=== PATIENT | female | born 1975 | race Hispanic/Latino ===

== ENCOUNTER 2016-07-14 08:08 | Emergency (ER) | payer OTHER ==
[~2016-07-14] VITALS: Ht 165.1 cm; Wt 106.6 kg
[~2016-07-14 08:08] MED LIST: ANTIVERT 25MG #1 PAC PO
[2016-07-14] MEDS ORDERED: SERTRALINE HCL50 MG PO (08:47)
--- NOTE | 2016-07-14 08:50 | ED GI/GU/ABDOMINAL COMPLAINT ---
History of Present Illness General Chief Complaint: Female Urogenital Problems Stated Complaint: VAGINAL BLEEDING Source: patient Exam Limitations: no limitations Vital Signs & Intake/Output Vital Signs & Intake/Output Vital Signs Date Time Temp Pulse Resp B/P B/P Pulse O2 O2 Flow FiO2 Mean Ox Delivery Rate 07/14 1014 97.8 68 20 139/86 99 Room Air 07/14 0811 97.6 75 18 185/96 100 Room Air Allergies Coded Allergies: No Known Allergies (07/14/16) Reconcile Medications Medroxyprogesterone Acetate (Provera) 10 MG TABLET 1 TAB PO DAILY VAG BLEEDING Sertraline HCl 50 MG TABLET 1 TAB PO DAILY MENTAL HEALTH (Reported) Triage Note: 41 Y/O FEMALE C/O VAGINAL BLEEDING X 10 DAYS. STATES SHE HAD A MIRENA SO HER OB REMOVED IT AND TOLD HER "IT WAS NORMAL". PT STATES BLEEDING CONTINUED. WAS EVAL'D AT [facility] YESTERDAY AND TOLD HER BLOODWORK WAS GOOD. C/O INTERMITTENT ABDOMINAL PAIN AND CONTINUED BLEEDING. Triage Nurses Notes Reviewed? yes ? n Is pt currently ? No Onset: Abrupt Duration: day(s): (10), constant, continues in ED Timing: recent history Quality/Severity: cramping, moderate, severe Radiation: no radiation Activities at Onset: none No Modifying Factors: none HPI: 41-year-old female comes into emergency room for evaluation of vaginal bleeding. Patient had her IUD pulled about 10 days ago and has had persistent bleeding since then. Some clots passing. Patient reports she's been going through about 8 pads a day. Patient was seen at Hospital yesterday and had blood work and a pelvic exam done. She spoke with her ASSESSMENT MANAGER doctor initially told her was normal for the bleeding. She called him back again and he told her he would prescribe some thin if it continued. The cramping lower abdominal pain. Denies any other associated symptoms. (CHERYL PARIS) Past History Travel History Traveled to [place] past 21 day No Medical History Any Pertinent Medical History? see below for history Neurological: NONE EENT: NONE Cardiovascular: NONE Respiratory: NONE Gastrointestinal: NONE Hepatic: NONE Renal: NONE Musculoskeletal: NONE Psychiatric: NONE Endocrine: NONE Blood Disorders: NONE Cancer(s): NONE TRAIN ENGINEER/Reproductive: NONE Surgical History Surgical History: non-contributory Psychosocial History What is your primary language Bulgarian Tobacco Use: Never used Family History Hx Contributory? No (CHERYL PARIS) Review of Systems Review of Systems Constitutional: Reports: no symptoms. EENTM: Reports: no symptoms. Respiratory: Reports: no symptoms. Cardiovascular: Reports: no symptoms. GI: Reports: see HPI. Genitourinary: Reports: see HPI. Musculoskeletal: Reports: no symptoms. Skin: Reports: no symptoms. Neurological/Psychological: Reports: no symptoms. Hematologic/Endocrine: Reports: see HPI. Immunologic/Allergic: Reports: no symptoms. All Other Systems: Reviewed and Negative (CHERYL PARIS) Physical Exam Physical Exam General Appearance: well developed/nourished, alert, awake Head: atraumatic, normal appearance Eyes: Bilateral: normal appearance. Ears, Nose, Throat, Mouth: hearing grossly normal, moist mucous membrane Neck: normal inspection, full range of motion Respiratory: no respiratory distress Cardiovascular: regular rate/rhythm Gastrointestinal: soft, non-tender Back: normal inspection Extremities: normal range of motion Neurologic/Psych: awake, alert, normal gait, normal mood/affect Skin: intact, normal color Core Measures ACS in differential dx? No Severe Sepsis Present: No Septic Shock Present: No (CHERYL PARIS) Progress Differential Diagnosis: appendicitis, ectopic , ovarian cyst, ovarian torsion, PID/cervicitis, perforated viscous, threatened AB, UTI/pyelo Plan of Care: Orders Procedure Date/time Status URINE 07/14 821 Complete URINALYSIS 07/14 821 Complete COMPREHENSIVE METABOLIC PANEL 07/14 821 Complete CBC WITHOUT DIFFERENTIAL 07/14 821 Complete Laboratory Tests 07/14/16 0850: Anion Gap 12, Estimated GFR > 60, BUN/Creatinine Ratio 13.3, Glucose 111 H, Calcium 9.3, Total Bilirubin 0.5, AST 26, ALT 49, Alkaline Phosphatase 100, Total Protein 7.4, Albumin 4.2, Globulin 3.2, Albumin/Globulin Ratio 1.3, CBC w Diff NO MAN DIFF REQ, RBC 4.98, MCV 79.1 L, MCH 25.9 L, RDW 15.5 H, MPV 9.0, Gran % 74.7, Lymphocytes % 20.9, Monocytes % 3.2, Eosinophils % 1.2, Basophils % 0 L, Absolute Granulocytes 8.2 H, Absolute Lymphocytes 2.3, Absolute Monocytes 0.3, Absolute Eosinophils 0.1, Absolute Basophils 0, PUBS MCHC 32.8 L 07/14/16 0828: Urine Color PINK H, Urine Clarity HAZY H, Urine pH 7.5, Ur Specific [place] 1.015, Urine Protein TRACE H, Urine Ketones NEG, Urine Nitrite NEG, Urine Bilirubin NEG, Urine Urobilinogen 0.2, Ur Leukocyte Esterase NEG, Ur Microscopic SEDIMENT EXAMINED, Urine RBC >75 H, Ur Epithelial Cells FEW, Urine Mucus RARE, Urine Hemoglobin LARGE H, Urine Glucose NEG, Urine Test NEGATIVE Initial ED EKG: none (NELL HILARIO,CHERYL) Departure Departure Disposition: HOME OR SELF CARE Condition: Stable Clinical Impression Primary Impression: Vaginal bleeding Referrals: SUSANA GASCA (PCP/Family) Additional Instructions: Take Provera as prescribed. Follow-up with your ASSESSMENT MANAGER doctor. Return if any concerns worsening symptoms. Please go over all results of today's visit with your primary care doctor. Contact your primary care doctor to let them know you were here in the emergency room. There may be nonspecific findings which may not be related to your visit today here in the emergency room but may require further evaluation and chronic monitoring by your primary care doctor. If you had a laceration today the chance of foreign body always remains. You should follow-up with your primary care doctor for recheck in 3-5 days for a wound check. If you had an x-ray done there is a chance that a fracture could have been missed on initial read and you should follow-up with your primary care doctor for repeat x-rays if symptoms persist. If your blood pressure was elevated here in the emergency room please have rechecked by her primary care doctor within the next 48 hours by your primary care doctor. If you were prescribed a narcotic here in the emergency room or any type of controlled substances you're not allowed to drive while taking this medication or operate any type of heavy machinery. Narcotics can make you feel lightheaded dizziness nausea and can cause constipation. You may need to tow picker a stool softener. Thank you for choosing [facility] emergency room. Please return to the emergency room immediately if you have any other concerns worsening of symptoms. Departure Forms: Customer Survey General Discharge Information Prescriptions: Current Visit Scripts Medroxyprogesterone Acetate (Provera) 1 TAB PO DAILY #5 TAB Comments 07/14/2016 10:50:07 AM Patient clinically looks well. Nontoxic-appearing. In no apparent distress. Hemodynamically stable. Patient started on Provera. Told to follow-up with food and nutrition teacher. Return if any concerns. Reevaluated multiple times. (NELL HILARIO,CHERYL) PA/HAZMAT TRUCK DRIVER Co-Sign Statement Statement: ED Attending supervision documentation- x I saw and evaluated the patient. I have also reviewed all the pertinent lab results and diagnostic results. I agree with the findings and the plan of care as documented in the PA's/HAZMAT TRUCK DRIVER's documentation. [] I have reviewed the ED Record and agree with the PA's/HAZMAT TRUCK DRIVER's documentation. [] Additions or exceptions (if any) to the PAs/HAZMAT TRUCK DRIVER's note and plan are summarized below: [] (MARQUIS JACINTO,ANNA)
[2016-07-14 09:04] LABS: ABSOLUTE BASOPHIL COUNT 0 /CUMM (0.0-0.2); ABSOLUTE EOSINOPHIL COUNT 0.1 /CUMM (0.0-0.7); ABSOLUTE GRANULOCYTE CT 8.2 /CUMM (1.4-6.5); ABSOLUTE LYMPH COUNT 2.3 /CUMM (1.2-3.4); ABSOLUTE MONOCYTE COUNT 0.3 /CUMM (0.10-0.60); BASOPHIL % 0 % (0.0-2.0); EOSINOPHIL % 1.2 % (0-5); GRANULOCYTE % 74.7 % (42.2-75.2); HEMATOCRIT 39.4 % (37-47); MEAN CORPUSCULAR HGB 25.9 PG (27.0-31.0); MEAN CORPUSCULAR HGB CONC 32.8 G/DL (33.0-37.0); MEAN CORPUSCULAR VOLUME 79.1 FL (81.0-99.0); PLATELET COUNT 279 /CUMM (130-400); RBC DISTRIBUTION WIDTH 15.5 % (11.5-14.5); RED BLOOD CELL CT 4.98 /CUMM (4.20-5.40)
[2016-07-14 10:14] VITALS: BP 139/86
--- NOTE | 2016-07-14 10:23 | ULTRASOUND REPORT ---
EXAMINATIONS: ULTRASOUND PELVIC, COMPLETE AND DOPPLER INTERROGATION CLINICAL INFORMATION: Persistent vaginal bleeding. COMPARISON: None. TECHNIQUE: Transabdominal and transvaginal imaging was performed. Transvaginal imaging was performed for further evaluation of the endometrium and adnexa. Doppler interrogation spectral analysis was performed. FINDINGS: The uterus is of normal size and echogenicity measuring 9.4 x 5.5 x 5.3 cm. There are 3 left-sided myometrial fibroids present. These measure 2.0 x 2.0 x 1.1 cm, 1.8 x 1.5 x 2.0 cm and 1.4 x 1.3 x 1.2 cm. A regular homogeneous endometrium is identified measuring 0.7 cm. The cervical length is 2.3 cm. There are several nabothian cysts present. Both ovaries are of normal size and echogenicity. The right measures 2.9 x 1.5 x 2.9 cm for a volume of 6.8 cc. This measurement includes an approximately 14 mm cyst. The left measures 4.3 x 1.8 x 1.7 cm for a volume of 7.0 cc. This measurement includes an approximately 15 mm cyst. Normal arterial and venous blood flow is present bilaterally. There is a small amount of likely physiologic pelvic free fluid. IMPRESSION: Several left-sided myometrial fibroids present. Normal endometrium. Small bilateral ovarian cysts. Otherwise, unremarkable ovaries. Several nabothian cysts.
[2016-07-14] MEDS ORDERED: PROVERA10 MG PO (10:36)
== END 2016-07-14 10:44 ==
LOC: ERH 08:08
PROVIDERS: Physician Assistant Medical
DX: N93.9 Abnormal uterine and vaginal bleeding, unspecified (principal)
CPT/HCPCS: 81001; 81025